=== PATIENT | female | born 2000 | race African-American/Black ===

== ENCOUNTER 2021-05-26 11:27 | Emergency (ER) | payer MEDICAID, SELFPAY ==
--- NOTE | ~2021-05-26 | XR_ITS ---
EXAMINATION: XR knee RT min 4V EXAM DATE: 05/26/2021 13:53 INDICATION: Acute right knee pain, no known recent injury. TECHNIQUE: Right knee frontal, crosstable lateral, orthogonal oblique projections for interpretation . There is no prior study for comparison. FINDINGS: No evidence osteochondral defect or joint body in the right knee joint. There are no acut e fractures or dislocations identified. There is no subcutaneous gas. There is soft tissue swelling over the knee anteriorly. No joint effusion. There are no radiopaque foreign bodies. IMPRESSION: 1. Right knee exam without acute osseous findings. 2. Soft tissue swelling. Reviewed, dictated and finalized at location A. [employer]
[2021-05-26 12:37] VITALS: BP 138/65; PULSE 71; RESP 18; TEMP 36.6; O2SAT 100
[2021-05-26] MEDS: metroNIDAZOLE 250 MG TABLET 2000 MG PO (14:46)
[2021-05-26] MEDS: cefTRIAXone 1 GM VIAL 0.5 GM IM (14:48)
[2021-05-26] MEDS: LIDOCAINE HCL 1% LOCAL INJ 20 ML VIAL (14:49)
--- NOTE | 2021-05-26 14:50 | ED.GENADULT ---
HPI - General Adult General Chief complaint: Unspecified Stated complaint: R KNEE PAIN X1WK, VAG D/C WANTS CHECKED Time Seen by Provider: 05/26/21 13:37 Source: patient Mode of arrival: ambulatory Limitations: no limitations History of Present Illness HPI narrative: Patient is a 20-year-old female with chief complaint of right knee pain over the past week. 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 Patient reports that the pain is greatest when she is flexing or weightbearing. Patient also reports that she had STD testing performed by her [employer] CLERK last week and was diagnosed with gonorrhea and chlamydia but could not go into the office for treatment, which she is hoping to receiving treatment here. Patient denies any vaginal discharge at this time. Patient denies any fevers, chills, nausea, vomiting, abdominal pain or any other symptoms. Related Data Allergies Allergy/AdvReac Type Severity Reaction Status Date / Time No Known Allergies Allergy Verified 05/26/21 14:26 Review of Systems Review of Systems: CONSTITUTIONAL: Denies fever, chills, or sweats. EYES: Denies visual changes, redness, or discharge. ENT: Denies rhinorrhea, congestion, sore throat, or otalgia. CARDIOVASCULAR: Denies chest pain, palpitations, or edema. RESPIRATORY: Denies cough or dyspnea. GASTROINTESTINAL: Denies abdominal pain, nausea, vomiting, or diarrhea. GENITOURINARY: Denies dysuria or hematuria. SKIN: Denies rash or itching. MUSCULOSKELETAL: Reports right knee pain denies back pain, joint pain, or myalgia. NEUROLOGIC: Denies headache, numbness, dizziness, or weakness. PSYCHIATRIC: Denies anxiety or depression. Exam Narrative: GENERAL: Well-appearing, well-nourished, and in no acute distress. HEAD: Normocephalic, atraumatic. EYES: PERRLA and EOMI. EXTREMITIES: Swelling noted to the anterior aspect of the right knee. Tender to palpation to the medial aspect the patella and distally. Patient has limited flexion due to discomfort. Patient reports pain with weightbearing. Knee without appreciable erythema or excessive warmth. SKIN: Warm, dry, no rash. NEURO: No focal deficits. Alert and oriented x3. PSYCH: Normal mood and affect. Course Vital Signs Vital signs: Vital Signs Temperature 97.9 F 05/26/21 12:37 Pulse Rate 71 05/26/21 12:37 Respiratory Rate 18 05/26/21 12:37 Blood Pressure 138/65 05/26/21 12:37 Pulse Oximetry 100 05/26/21 12:37 Temperature 97.9 F 05/26/21 12:37 Pulse Rate 71 05/26/21 12:37 Respiratory Rate 18 05/26/21 12:37 Blood Pressure 138/65 05/26/21 12:37 Pulse Oximetry 100 05/26/21 12:37 Medical Decision Making MDM Narrative Medical decision making narrative: Patient reports that she was told that she had been exposed and was positive for gonorrhea chlamydia. Patient will be receiving Rocephin, Flagyl and a prescription for doxycycline for home. Patient will be placed in knee immobilizer and given instructions to follow-up with primary care front desk specialist for the evaluation of her tendons ligaments. Patient has been informed that she may need further investigation into her to his ligaments which could include an MRI which cannot be performed in emergency department. Patient instructed to follow-up with her [employer] for test for cure and further evaluation investigation of her STIs and vaginal health. Patient strict return to emergency department if she develops any emergent symptoms. Differential Diagnosis Differential Diagnosis: Fracture, sprain, strain, STI's Vital Signs Vital Signs: Vital Signs Temperature 97.9 F 05/26/21 12:37 Pulse Rate 71 05/26/21 12:37 Respiratory Rate 18 05/26/21 12:37 Blood Pressure 138/65 05/26/21 12:37 Pulse Oximetry 100 05/26/21 12:37 Temperature 97.9 F 05/26/21 12:37 Pulse Rate 71 05/26/21 12:37 Respiratory
== END 2021-05-26 15:11 | disposition home or self-care (01) ==
PROVIDERS: Emergency Provider Emergency Medicine
DX: S83.91XA Sprain of unspecified site of right knee, initial encounter (principal); A56.8 Sexually transmitted chlamydial infection of other sites; A54.9 Gonococcal infection, unspecified; X58.XXXA Exposure to other specified factors, initial encounter
CPT/HCPCS: 73564; 96372; 99283; A9270; J0696

== ENCOUNTER 2022-08-30 15:50 | Emergency (ER) | payer MEDICAID, SELFPAY ==
[2022-08-30 16:27] VITALS: BP 127/81; PULSE 89; RESP 16; TEMP 36.5; O2SAT 98
--- NOTE | 2022-08-30 18:35 | ED.GENADULT ---
HPI - General Adult General Chief complaint: Urogenital-Female <Darian Morocho PA-C - Last Filed: 08/30/22 20:24> Stated complaint: std check <Darian Morocho PA-C - Last Filed: 08/30/22 20:24> Time Seen by Provider: 08/30/22 18:34 <Darian Morocho PA-C - Last Filed: 08/30/22 20:24> Source: patient <ALANA Blankenship Last Filed: 08/30/22 20:24> Mode of arrival: ambulatory <ALANA Blankenship Last Filed: 08/30/22 20:24> Limitations: no limitations <Darian Morocho PA-C - Last Filed: 08/30/22 20:24> History of Present Illness HPI narrative: This is a 21-year-old female presents to the ED with chief complaint of STD test. She states that she is completely asymptomatic at this point. Denies dysuria, hematuria, discharge, pelvic pain, abdominal pain. She states her partner is having green discharge and penile pain. Patient states she has not yet been tested and he has not either. LMP late July but she is unsure of the date. <Darian Morocho PA-C - Last Filed: 08/30/22 20:24> Related Data Allergies/adverse reactions: Allergies Allergy/AdvReac Type Severity Reaction Status Date / Time No Known Allergies Allergy Verified 08/30/22 18:55 <Darian Morocho PA-C - Last Filed: 08/30/22 20:24> Review of Systems Review of Systems: CONSTITUTIONAL: Denies fever, chills, or sweats. EYES: Denies visual changes, redness, or discharge. ENT: Denies rhinorrhea, congestion, sore throat, or otalgia. CARDIOVASCULAR: Denies chest pain, palpitations, or edema. RESPIRATORY: Denies cough or dyspnea. GASTROINTESTINAL: Denies abdominal pain, nausea, vomiting, or diarrhea. GENITOURINARY: Denies dysuria or hematuria. SKIN: Denies rash or itching. MUSCULOSKELETAL: Denies back pain, joint pain, or myalgia. NEUROLOGIC: Denies headache, numbness, dizziness, or weakness. PSYCHIATRIC: Denies anxiety or depression. <Darian Morocho PA-C - Last Filed: 08/30/22 20:24> Exam Narrative: GENERAL: Well-appearing, well-nourished, and in no acute distress. HEAD: Normocephalic, atraumatic. EYES: PERRLA and EOMI. ENT: Nares clear, no rhinorrhea or epistaxis. Mucous membranes moist. Oropharynx without tonsillar hypertrophy exudate or other lesions. NECK: Supple. No adenopathy or masses. CHEST: No respiratory distress. Clear to auscultation. No wheezes rales or rhonchi HEART: Regular rate and rhythm. No murmur heard. Normal peripheral pulses. ABDOMEN: Soft, nontender, nondistended, normal active bowel sounds. EXTREMITIES: Normal range of motion. No edema. SKIN: Warm, dry, no rash. NEURO: Alert and oriented x3. No focal deficits. PSYCH: Normal mood and affect. Pelvic exam done with female nurse pcas present: Scant white discharge noted in vaginal vault with minimal discharge at the cervical os. No CMT is present No tenderness or masses palpated with bimanual exam. <Darian Morocho PA-C - Last Filed: 08/30/22 20:24> Course [employer] MACHINE OPERATOR/PA Physician Supervision This is a was performed by both a physician and an APC. I performed all aspects of the MDM as documented w/ the following additions: This is a 21-year-old asymptomatic female presenting for STD testing. Her partner's been having green penile discharge. Pelvic exam was performed and was unremarkable. Patient will be treated empirically for All questions answered. Patient in agreement w/ disposition. <Domenico Armstrong MD - Last Filed: 09/03/22 01:49> Vital Signs Vital signs: Vital Signs Temperature 97.7 F 08/30/22 16:27 Pulse Rate 89 08/30/22 16:27 Respiratory Rate 16 08/30/22 16:27 Blood Pressure 127/81 08/30/22 16:27 Pulse Oximetry 98 08/30/22 16:27 Oxygen Delivery Room Air 08/30/22 16:27 Temperature 97.7 F 08/30/22 16:27 Pulse Rate 74 08/30/22 18:54 Respiratory Rate 14 08/30/22 18:54 Blood Pressure 118/82 08/30/22 18:54 Pulse Oximetry 99 08/30/22 18:54 Oxygen Delivery Room Air 08/30/22 16:
[2022-08-30 18:54] VITALS: BP 118/82; PULSE 74; RESP 14; O2SAT 99
[2022-08-30 19:50] LABS: Appearance Urine Clear (Clear); Bacteria Urine Rare /hpf; Bilirubin Urine Negative (Negative); Blood Urine Negative (Negative); Color Urine Dark Yellow (Yellow); Glucose Urine UA Negative (Negative); Ketones Urine Negative (Negative); Leukocyte Esterase Ur 1+ LEU/UL (Negative); Need Manual Microscopic Reviewed; Nitrate Urine Negative (Negative); Protein Urine 1+ mg/dL (Negative); RBC Urine 0-2 /hpf (0-2); Squamous Epithelial Cell Urine Occasional /hpf (Few); WBC Urine 51-100 /hpf; pH Urine 5.5 (5.0-9.0)
[2022-08-30 19:52] LABS: Add Urine Microscopic? YES; Specific Grav Ur 1.038 (1.001-1.035)
[2022-08-30] MEDS: cefTRIAXone 1 GM VIAL 0.5 GM IM (19:59)
[2022-08-30] MEDS: LIDOCAINE HCL 1% LOCAL INJ 20 ML VIAL (19:59)
[2022-08-30] MEDS: ONDANSETRON HCL ODT 4 MG TABLET PO (19:59)
[2022-08-30] MEDS: metroNIDAZOLE 250 MG TABLET 2000 MG PO (19:59)
== END 2022-08-30 20:28 | disposition home or self-care (01) ==
PROVIDERS: General Practice; Physician Assistant; Emergency Provider Emergency Medicine
DX: A59.01 Trichomonal vulvovaginitis (principal)
CPT/HCPCS: 81001; 81025; 87070; 87086; 87491; 87591; 87808; 96372; 99283; A9270; J0696